=== PATIENT | female | born 1965 | race African-American/Black ===

== ENCOUNTER 2016-10-27 08:04 | Emergency (ER) | payer OTHER ==
[2016-10-27 08:23] VITALS: BP 138/97; PULSE 75; TEMP 98.7; BMI 25.0
--- NOTE | 2016-10-27 08:24 | PDOC ---
History of Present Illness - General Chief Complaint: Diarrhea Stated Complaint: DIARRHEA Time Seen by Provider: 10/27/16 08:07 History Source: Patient Exam Limitations: No Limitations - History of Present Illness Initial Comments: 10/27/16 08:21 50 yo F with h/o DM here with c/o diarrhea x 6 days. states having 3 - 4 bm / day. initially were watery, now more formed. does get lower abd crampig with eating. no f/c still tolerating PO. no recent travel or abx. no sick contacts. thought maybe was food poisoning from some canned milk she had 6 days prior. no h/o similar gi illness. Past History - Past Medical History Allergies/Adverse Reactions: Allergies Allergy/AdvReac Type Severity Reaction Status Date / Time No Known Allergies Allergy Verified 10/27/16 08:08 Home Medications: Ambulatory Orders Metformin HCl 500 mg PO BID 10/27/16 Diabetes: Yes - Psycho/Social/Smoking Cessation Hx Anxiety: No Suicidal Ideation: No Smoking History: Never smoked Have you smoked in the past 12 months: No Information on smoking cessation initiated: No Hx Alcohol Use: No Drug/Substance Use Hx: No Substance Use Type: None Review of Systems - Review of Systems Constitutional: No: Chills, Diaphoresis, Fever Respiratory: No: Orthopnea, Shortness of Breath Cardiac (ROS): No: Chest Pain, Edema ABD/GI: Yes: Diarrhea. No: Nausea, Vomiting : No: Burning, Dysuria All Other Systems: Reviewed and Negative *Physical Exam - Vital Signs Last Vital Signs Temp Pulse Resp BP Pulse Ox 98.7 F 75 20 138/97 97 10/27/16 08:04 10/27/16 08:04 10/27/16 08:04 10/27/16 08:04 10/27/16 08:04 - Physical Exam General Appearance: Yes: Nourished, Appropriately Dressed HEENT: positive: Normal ENT Inspection Neck: positive: Trachea midline Respiratory/Chest: positive: Lungs Clear, Normal Breath Sounds. negative: Respiratory Distress Cardiovascular: positive: Regular Rhythm, Regular Rate, S1, S2 Gastrointestinal/Abdominal: positive: Normal Bowel Sounds, Flat, Soft. negative : Tender Extremity: positive: Normal Capillary Refill Integumentary: positive: Normal Color, Dry, Warm Neurologic: positive: Fully Oriented, Alert, Normal Mood/Affect ED Treatment Course - LABORATORY CBC & Chemistry Diagram: 10/27/16 08:30 10/27/16 08:30 Medical Decision Making - Medical Decision Making 10/27/16 08:23 50 yo F with h/o DM on metformin here wtih 6 days mild abd cramping and loose stool. non/v no f/c nontendern exam. differential IBS, viral GE, colitis, dehydration electrolyte abnormality. plan labs, po hydration reassess. 10/27/16 09:33 pt labs unremarkable. tolerating PO nontendern exam. given GI* referral copies all blood work and req outpt followup. *DC/Admit/Observation/Transfer Diagnosis at time of Disposition: Colitis - Discharge Dispostion Disposition: HOME Condition at time of disposition: Improved Admit: No - Referrals Referrals: Adiel Mata MD [Staff Physician] - - Patient Instructions Printed Discharge Instructions: DI for Colitis, Viral Gastroenteritis Additional Instructions: you should follow up [facility] DR Mata, fitness studies teacher, call to schedule see referral information. your labs were all normal today ( see attached ) you should schedule follow up appointment with your regular doctor. return for vomiting, worsening pain, fever or any concerns. eat bland food, drink plenty of liquids to avoid dehydration. return for any problems or concerns.
[2016-10-27 08:47] LABS: BASOPHIL 1.2 % (0-2.0); EOSINOPHIL 0.8 % (0-4.5); MCH 30.5 pg (25.7-33.7); MEAN CELL VOLUME 89.6 fl (80-96); MEAN PLT VOLUME 8.8 fl (7.5-11.1); NEUTROPHILS 51.2 % (42.8-82.8); PLATELET COUNT 157 K/MM3 (134-434); RDW 12.2 % (11.6-15.6); WHITE BLOOD COUNT 5.1 K/mm3 (4.0-10.8)
[2016-10-27 08:54] LABS: ALBUMIN 3.8 g/dl (3.5-5.0); ALK PHOS 114 U/L (32-92); ANION GAP 7 (8-16); BILIRUBIN,TOTAL 0.4 mg/dl (0.2-1.0); CALCIUM 9.5 mg/dl (8.4-10.2); CO2 26 mmol/L (22-28); CREATININE 0.6 mg/dl (0.6-1.3); GLUCOSE,RANDOM 276 mg/dl (74-106); SGOT/AST 18 U/L (10-42); SGPT/ALT 23 U/L (10-40); TOT PROT 6.2 g/dl (6.4-8.3)
== END 2016-10-27 09:35 | disposition home or self-care (01) ==
LOC: FER 08:04
DX: K52.9 Noninfective gastroenteritis and colitis, unspecified (principal); E11.9 Type 2 diabetes mellitus without complications
CPT/HCPCS: 36415; 80053; 83690; 85025; 99282-25

== ENCOUNTER 2017-03-17 21:08 | Emergency (ER) | payer OTHER ==
[2017-03-17 21:14] VITALS: BP 140/87; PULSE 79; TEMP 98.4; BMI 25.0
[2017-03-17] MEDS ORDERED: IBUPROFEN 600 MG TABLET (FP) PO ONE ×2 (21:32→21:33)
--- NOTE | 2017-03-17 21:32 | PDOC ---
History of Present Illness - General History Source: Patient Exam Limitations: No Limitations - History of Present Illness Initial Comments: 03/17/17 21:41 A portion of this note was documented by scribe services under my direction. I have reviewed the details of the note, within reason, and agree with the documentation. The case summary and management plan written by me. Assessment and plan: This is a 51-year-old female who slipped and fell in the grocery store. Patient went down landing on her right buttock cheek and right side. Patient is complaining of pain in her right arm right buttocks and right knee patient is able to ambulate with minimal discomfort. Patient has no bony tenderness on my exam. Patient did not hit her head did not pass out does not have any other complaints. Patient was given ibuprofen told to continue the ibuprofen and follow up with her doctor in 3-4 days if not better <Judy Chavez I - Last Filed: 03/17/17 21:41> - General History Source: Patient Exam Limitations: No Limitations - History of Present Illness Initial Comments: 03/17/17 21:43 The patient is a 51 year old female, with a significant past medical history of DM, who presents to the emergency department via walk in complaining of right hip and right elbow pain s/p fall prior to arrival. The patient reports she was walking in the grocery store when she slipped on water on the ground and fell on her right side. She denies head injury or loss of consciousness. The patient reports the right hip pain is made worse while walking. She denies head, neck or back pain. She denies numbness, tingling or loss of sensation. She denies recent fevers, chills, headache or dizziness. She denies recent nausea, vomit, diarrhea or constipation. She denies recent chest pain or shortness of breath. PAST MEDICAL HISTORY: no significant history PAST SURGICAL HISTORY: no significant history FAMILY HISTORY: no pertinent history SOCIAL HISTORY: Pt lives with family and is employed. MEDICATIONS: reviewed ALLERGIES: As per nursing notes General: No fevers or chills, no weakness, no weight loss HEENT: No change in vision. No sore throat,. No ear pain CardioVascular: No chest pain or shortness of breath Respiratory:No cough, or wheezing. Gastrointestinal: no nausea, vomiting, diarrhea or constipation, No rectal bleeding Genitourinary: No dysuria, hematuria, or frequency Musculoskeletal: +Right hip pain. +Right elbow pain. Neurologic: No headache, vertigo, dizziness or loss of consciousness Psychiatric: nor depression Skin: No rashes or easy bruising Endocrine: no increased thirst or abnormal weight change Allergic: no skin or latex allergy All other systems reviewed and normal GENERAL: The patient is awake, alert, and fully oriented. HEAD: Normal with no signs of trauma. EYES: Pupils equal, round and reactive to light, extraocular movements intact, sclera anicteric, conjunctiva clear. EXTREMITIES: +Contusion and tenderness posterior right elbow. No bony tenderness. Full ROM with minimal discomfort. Neurovascular intact. +Contusion of the lower right buttocks laterally. Full ROM of the hip. No tenderness of the hip or upper leg. Patient is able to ambulate and bear weight with minimal discomfort. +Right knee contusion on the lateral aspect of the knee. No bony tenderness to patella, distal femur or proximal lower leg. Neurovascular of leg intact. NEUROLOGICAL: Normal speech, normal gait. PSYCH: Normal mood, normal affect. SKIN: Warm, Dry, normal turgor, no rashes or lesions noted. <Akhil Kenny - Last Filed: 03/17/17 21:45> - General Chief Complaint: Pain Stated Complaint: S/P FALL PAIN TO R HIP/ELBOW Time Seen by Provider: 03/17/17 21:24 Past History - Past Medical History COPD: No Diabetes: Yes - Suicide/Smoking/Psychosocial Hx Smoking History: Never smoked Have you smoked in the past 12 months: No Number of Cigarettes Smoked Daily: 0 Information on smoking cessation initiated: No Hx Alcohol Use: No Drug/Substance Use Hx: No Substance Use Type: None <Judy Chavez I - Last Filed: 03/17/17 21:41> <Akhil Kenny - Last Filed: 03/17/17 21:45> - Past Medical History Allergies/Adverse Reactions: Allergies Allergy/AdvReac Type Severity Reaction Status Date / Time No Known Allergies Allergy Verified 10/27/16 08:08 Home Medications: Ambulatory Orders Metformin HCl 500 mg PO BID 10/27/16 *Physical Exam - Vital Signs Last Vital Signs Temp Pulse Resp BP Pulse Ox 98.4 F 79 14 140/87 100 03/17/17 21:10 03/17/17 21:10 03/17/17 21:10 03/17/17 21:10 03/17/17 21:10 <Judy Chavez I - Last Filed: 03/17/17 21:41> - Vital Signs Last Vital Signs Temp Pulse Resp BP Pulse Ox 98.4 F 79 14 140/87 100 03/17/17 21:10 03/17/17 21:10 03/17/17 21:10 03/17/17 21:10 03/17/17 21:10 <Akhil Kenny - Last Filed: 03/17/17 21:45> ED Treatment Course - Medications Given in the ED: ED Medications Discontinued Medications Generic Name Dose Route Start Last Admin Trade Name Francis PRN Reason Stop Dose Admin Ibuprofen 600 mg 03/17/17 21:32 03/17/17 21:37 Motrin - PO 03/17/17 21:33 600 mg ONCE ONE Administration <Akhil Kenny - Last Filed: 03/17/17 21:45> *DC/Admit/Observation/Transfer - Discharge Dispostion Admit: No <Judy Chavez I - Last Filed: 03/17/17 21:41> - Attestations Scribe Attestion: 03/17/17 21:45 Documentation prepared by Akhil Kenny, acting as medical office supervisor for Judy Chavez MD. <Akhil Kenny - Last Filed: 03/17/17 21:45> Diagnosis at time of Disposition: Contusion, buttock Qualifiers: Encounter type: initial encounter Qualified Code(s): S30.0XXA - Contusion of lower back and pelvis, initial encounter Contusion of right knee Qualifiers: Encounter type: initial encounter Qualified Code(s): S80.01XA - Contusion of right knee, initial encounter Contusion of right elbow Qualifiers: Encounter type: initial encounter Qualified Code(s): S50.01XA - Contusion of right elbow, initial encounter - Discharge Dispostion Disposition: HOME Condition at time of disposition: Good - Patient Instructions Additional Instructions: Take ibuprofen 3 tablets 3 times a day with food don't take on an empty stomach do this for at least 4-5 days this is for pain and inflammation. Return to the emergency department immediately with ANY new, persistent or worsening symptoms. Continue any medications as previously prescribed by your physician. You should follow up with your primary doctor as soon as possible regarding today's emergency department visit. . Please make sure your doctor reviews the results of your emergency evaluation. Thank you for coming to the Emergency Department today for your care. It was a pleasure to see you today. Please note that your evaluation is INCOMPLETE until you follow-up with your doctor.
== END 2017-03-17 21:46 | disposition home or self-care (01) ==
LOC: FER 21:08
DX: S30.0XXA Contusion of lower back and pelvis, initial encounter (principal); S80.01XA Contusion of right knee, initial encounter; S50.01XA Contusion of right elbow, initial encounter; W18.39XA Other fall on same level, initial encounter; Y93.89 Activity, other specified; Y92.512 Supermarket, store or market as the place of occurrence of the external cause; E11.9 Type 2 diabetes mellitus without complications
CPT/HCPCS: 99282-25

== ENCOUNTER 2019-09-19 19:31 | Emergency (ER) | payer OTHER ==
[2019-09-19 19:45] VITALS: BP 141/96; PULSE 76; TEMP 98.6; BMI 26.9
--- NOTE | 2019-09-19 20:37 | PDOC ---
Documentation entered by Paloma Lea SCRIBE, acting as scribe for Judy Chavez MD. Judy Chavez MD: This documentation has been prepared by the anantibVenu garcia Lincy, SCRIBE, under my direction and personally reviewed by me in its entirety. I confirm that the documentation accurately reflects all work, treatment, procedures, and medical decision making performed by me. History of Present Illness - General Chief Complaint: Pain Stated Complaint: LEFT HIP AND SIDE PAIN S/P FALL ON WATER AT WORK Time Seen by Provider: 09/19/19 19:39 History Source: Patient Exam Limitations: No Limitations - History of Present Illness Initial Comments: 09/19/19 20:17 The patient is a 53-year-old female who presents to the emergency department s/p a fall at work around 3:00 pm today. The patient reports she didnt see the water on the floor next to the ventilator, she slipped on the water and fell onto her left side. Denies head injury or LOC. The patient reports the left hip didnt hurt following the incident, however, it has now worsened. The patient reports an intermittent, sharp, shooting pain to the left hip with ambulation. The patient reports taking 400mg of ibuprofen for the pain. PAST MEDICAL HISTORY: DM PAST SURGICAL HISTORY: no significant history FAMILY HISTORY: no pertinent history SOCIAL HISTORY: Pt lives with family and is employed. MEDICATIONS: reviewed ALLERGIES: As per nursing notes PCP: Dr. Mclean or Dr. Singh. Review of system: General: No fevers or chills, no weakness, no weight loss HEENT: No change in vision. No sore throat. No ear pain CardioVascular: No chest pain or shortness of breath Respiratory:No cough, or wheezing. Gastrointestinal: no nausea, vomiting, diarrhea or constipation, No rectal bleeding Genitourinary: No dysuria, hematuria, or frequency Musculoskeletal: +left hip pain. No other joint or muscle pain or swelling Neurologic: Denies head injury. No headache, vertigo, dizziness or loss of consciousness Psychiatric: nor depression Skin: No rashes or easy bruising Endocrine: no increased thirst or abnormal weight change Allergic: no skin or latex allergy All other systems reviewed and normal Physical exam: GENERAL: The patient is awake, alert, and fully oriented, in no acute distress. HEAD: Normal with no signs of trauma. EYES: Pupils equal, round and reactive to light, extraocular movements intact, sclera anicteric, conjunctiva clear. MSK: +No bony tenderness of the left hip. +soft tissue tenderness. EXTREMITIES: Normal range of motion, no edema. NEUROLOGICAL: Normal speech, normal gait. PSYCH: Normal mood, normal affect. SKIN: Warm, Dry, normal turgor, no rashes or lesions noted. 09/19/19 20:37 Assessment and plan: This is a 53-year-old female who comes in complaining of fell at work and has left hip pain. Patient had x-rays done that were negative for any acute pathology. Patient given Motrin. Patient able to ambulate with minimal discomfort or difficulty. Patient discharged and will follow-up with her primary care doctor Past History - Medical History Allergies/Adverse Reactions: Allergies Allergy/AdvReac Type Severity Reaction Status Date / Time No Known Allergies Allergy Verified 09/19/19 19:33 Home Medications: Ambulatory Orders NK [No Known Home Medication] 09/19/19 COPD: No Diabetes: Yes - Psycho-Social/Smoking History Smoking History: Never smoked Have you smoked in the past 12 months: No Number of Cigarettes Smoked Daily: 0 Discharge - Discharge Information Problems reviewed: Yes Clinical Impression/Diagnosis: Left hip pain, Fall Condition: Stable Disposition: HOME - Admission No - Follow up/Referral Referrals: Nile Roche MD [Primary Care Provider] - - Patient Discharge Instructions Additional Instructions: Tylenol or Motrin as needed for pain return to the emergency department immediately with ANY new, persistent or worsening symptoms. Continue any medications as previously prescribed by your physician. You should follow up with your primary doctor as soon as possible regarding today's emergency department visit. . Please make sure your doctor reviews the results of your emergency evaluation. Thank you for coming to the Emergency Department today for your care. It was a pleasure to see you today. Please note that your evaluation is INCOMPLETE until you follow-up with your doctor. . - Post Discharge Activity
== END 2019-09-19 20:42 | disposition home or self-care (01) ==
LOC: FER 19:31 → SUPCPDRO 19:31 → FER 20:42
DX: M25.552 Pain in left hip (principal)
CPT/HCPCS: 73523-TC-FY; 99283-25

== ENCOUNTER 2019-12-06 23:29 | Emergency (ER) | payer OTHER ==
[2019-12-06 23:43] VITALS: BMI 24.2
[2019-12-06] MEDS ORDERED: SODIUM CHLORIDE 1,000 ML IV SCH (23:45)
[2019-12-06] MEDS ORDERED: ONDANSETRON 4 MG/2 ML VIAL IVPUSH ONE (23:50)
--- NOTE | 2019-12-06 23:52 | PDOC ---
Attending Attestation - Resident Resident Name: Aaron Shea - ED Attending Attestation I have performed the following: I have examined & evaluated the patient, The case was reviewed & discussed with the resident, I agree w/resident's findings & plan - HPI HPI: 12/07/19 03:13 see resident hpi - Physicial Exam PE: 12/07/19 03:13 see resident exam - Medical Decision Making 12/07/19 03:13 54-year-old female with gradual onset of frontal headache with nausea since yesterday CT scan of the brain shows no significant acute findings Patient did have an elevated blood sugar of greater than 300 despite being on Metformin Plan for IV fluid normal saline x2 L, Reglan 10 mg and Zofran 4 mg as well as Tylenol 1 g IV On reevaluation patient had minimal improvement, will add Toradol and Benadryl and plan for discharge after reevaluation if improved Of note there is no associated fever, leukocytosis, thunderclap onset or description of the worst headache of her life, no meningeal signs on exam Discharge - Discharge Information Problems reviewed: Yes Clinical Impression/Diagnosis: Frontal headache - Follow up/Referral - Patient Discharge Instructions - Post Discharge Activity
[2019-12-06] MEDS ORDERED: ACETAMINOPHEN 1000 MG/100 ML VIAL (NON FORMULARY) IVPB ONE (23:57)
--- OUTSIDE RECORDS SUMMARY | 2019-12-07 00:10 | XMS ---
:1965 Author Organization [facility] Care Team Providers Name Role Phone CAITIE PAUL Unavailable Unavailable Re-disclosure Warning The records that you are about to access may contain information from federally- assisted alcohol or drug abuse programs. If such information is present, then the following federally mandated warning applies: This information has been disclosed to you from records protected by federal confidentiality rules (42 CFR part 2). The federal rules prohibit you from making any further disclosure of this information unless further disclosure is expressly permitted by the written consent of the person to whom it pertains or as otherwise permitted by 42 CFR part 2. A general authorization for the release of medical or other information is NOT sufficient for this purpose. The Federal rules restrict any use of the information to criminally investigate or prosecute any alcohol or drug abuse patient.The records that you are about to access may contain highly sensitive health information, the redisclosure of which is protected by Article 27-F of the [facility] Public Health law. If you continue you may haveaccess to information: Regarding HIV / AIDS; Provided by facilities licensed or operated by the [facility] Office of Mental Health; or Provided by the [facility] Office for People With Developmental Disabilities. If such information is present, then the following [facility] mandated warning applies: This information has been disclosed to you from confidential records which are protected by state law. State law prohibits you from making any further disclosure of this information without the specific written consent of the person to whom it pertains, or as otherwise permitted by law. Any unauthorized further disclosure in violation of state law may result in a fine or retirement sentence or both. A general authorization for the release of medical or other information is NOT sufficient authorization for further disclosure. Encounters Encounter Providers Location Date Indications Data Source(s ) Outpatient Attender: BEVERLY 06/20/2019 Z03.818 [facility] MARTÍNEZdmitter: 11:45:00 AM Health C are CAITIE PAUL [employer] Z03.818 Insurance Providers Payer name Policy type Policy ID Covered Covered republican's Policy P nate / Coverage republican ID relationship to [employer] ormation type [employer] LOCAL [id number] - [id number] [facility] [id number] SP [id number] Problems, Conditions, and Diagnoses Code Display Name Description Problem Type Effective Data Sour ce(s) Dates Z03.818 Encounter for ENCNTR FOR OBS Diagnosis 06/20/2019 [facility] observation for FOR SUSP EXPSR TO 11:45:00 AM C Kleer suspected OTH BIOLG AGENTS [employer] poration exposure to other RULED OUT biological agents ruled out Results ID Date Data Source [id number] 09/19/2019 12:00:00 AM EDT [facility] Name Value Range Interpretation Code Description Data Sophie rce(s) Supporting Document(s ) 2018-nCoV [facility] RNA XXX MARCELLUS+probe- Imp This lab was ordered by [facility] and reported by [employer] ID Date Data Source [id number] 08/14/2019 12:00:00 AM EDT [facility] Name Value Range Interpretation Code Description Data Sophie rce(s) Supporting Document(s ) 2018-nCoV [facility] RNA XXX MARCELLUS+probe- Imp This lab was ordered by [facility] and reported by [employer] ID Date Data Source [id number] 07/20/2019 12:00:00 AM EDT [facility] Name Value Range Interpretation Code Description Data Sophie rce(s) Supporting Document(s ) 2018-nCoV [facility] RNA XXX MARCELLUS+probe- Imp This lab was ordered by [facility] and reported by [employer] ID Date Data Source [id number] 06/20/2019 12:00:00 AM [facility] Name Value Range Interpretation Code Description Data Sophie rce(s) Supporting Document(s ) 2018-nCoV [facility] RNA XXX MARCELLUS+probe- Imp This lab was ordered by [facility] and reported by [employer] Procedure
[2019-12-07] MEDS ORDERED: ACETAMINOPHEN INJECTION 100 ML IVPB ONE (00:16)
[2019-12-07 00:35] LABS: BASO % 0.3 % (0-2.0); EOS % 0.1 % (0-4.5); HEMATOCRIT 41.4 % (32.4-45.2); HEMOGLOBIN 14.4 GM/dL (10.7-15.3); LYMPH % 14.8 % (8-40); MCH 31.8 pg (25.7-33.7); MCHC 34.7 g/dl (32.0-36.0); MEAN CELL VOLUME 91.6 fl (80-96); MEAN PLT VOLUME 10.7 fl (7.5-11.1); NEUT % 82.8 % (42.8-82.8); PLATELET COUNT 143 K/MM3 (134-434); RBC 4.53 M/mm3 (3.60-5.2); RDW 13.2 % (11.6-15.6); WHITE BLOOD COUNT 6.4 K/mm3 (4.0-10.0)
--- NOTE | 2019-12-07 00:40 | PDOC ---
History of Present Illness - General Chief Complaint: Nausea/Vomiting Stated Complaint: NAUSEA Time Seen by Provider: 12/06/19 23:52 History Source: Patient Exam Limitations: No Limitations - History of Present Illness Initial Comments: 12/07/19 00:40 54F with PMH of DM presents to the ED with DEL RIO + n/v yesterday. She does not have a history of headaches or migraines. She started having a frontal headache yesterday morning at work, and in the afternoon developed nausea/vomiting nonbilious, nonbloody. EMS was called. She denies lightheadedness/vertigo, numbness, weakness, cp, sob, abdominal pain, diarrhea, or constipation. Meds: In chart Allergies: NKDA ROS: HEENT: No change in vision. CARDIOVASCULAR: No chest pain or shortness of breath RESPIRATORY: No cough, wheezing, or hemoptysis. GASTROINTESTINAL: +nausea, vomiting; no diarrhea or constipation. GENITOURINARY: No dysuria, frequency, or change in urination. NEUROLOGIC: +headache; no vertigo, loss of consciousness, or change in strength/sensation. PE: GENERAL: AOx3; no apparent distress HEAD: NC/AT EYES: PERRLA, EOMI, sclera anicteric, conjunctiva clear CARDIO: RRR, normal S1/S2, no murmurs, rubs, or gallops. LUNGS: No distress, speaks full sentences, CTA bilaterally ABDOMEN: Soft, nontender. No guarding, no rebound. No masses NEUROLOGICAL: CNII-XII intact. Normal speech. No focal sensorimotor deficits. Cerebellar testing intact. Assessment and Plan 1. r/o intracranial pathology 2. gastroenteritis 3. tension DEL RIO Aaron Shea, PGY1 Emergency Medicine Past History - Medical History Allergies/Adverse Reactions: Allergies Allergy/AdvReac Type Severity Reaction Status Date / Time No Known Allergies Allergy Verified 12/06/19 23:42 Home Medications: Ambulatory Orders NK [No Known Home Medication] 09/19/19 COPD: No Diabetes: Yes - Reproductive History Is Patient Now?: No - Psycho-Social/Smoking History Smoking History: Never smoked Have you smoked in the past 12 months: No Number of Cigarettes Smoked Daily: 0 Information on smoking cessation initiated: No - Substance Abuse Hx (Audit-C & DAST Scrn) How often the patient has a drink containing alcohol: Never Score: In Men: 4 or > Positive; In Women: 3 or > Positive: 0 Screen Result (Pos requires Nsg. Audit-10AR): Negative In the last yr the pt used illegal drug/Rx for NonMed reason: No Score: Yes response is considered Positive: 0 Screen Result (Positive result requires Nsg. DAST-10): Negative *Physical Exam - Vital Signs Last Vital Signs Temp Pulse Resp BP Pulse Ox 98.9 F 87 20 143/81 100 12/06/19 23:41 12/06/19 23:41 12/06/19 23:41 12/06/19 23:41 12/06/19 23:41 ED Treatment Course - LABORATORY CBC & Chemistry Diagram: 12/07/19 00:07 12/07/19 00:07 - ADDITIONAL ORDERS Additional order review: 12/07/19 00:07 RBC 4.53 MCV 91.6 MCHC 34.7 RDW 13.2 MPV 10.7 Neutrophils % 82.8 Lymphocytes % 14.8 Monocytes % 2.0 L Eosinophils % 0.1 Basophils % 0.3 - Medications Given in the ED: ED Medications Discontinued Medications Generic Name Dose Route Start Last Admin Trade Name Marcellq PRN Reason Stop Dose Admin Acetaminophen 1,000 mg 12/06/19 23:57 12/07/19 00:21 Ofirmev Injection - IVPB 12/06/19 23:58 1,000 mg ONCE ONE Administration Ondansetron HCl 4 mg 12/06/19 23:50 12/07/19 00:12 Zofran Injection IVPUSH 12/06/19 23:51 Not Given ONCE ONE Medical Decision Making - Medical Decision Making 12/07/19 01:36 54F p/w DEL RIO and n/v. PE was unimpressive. -> DDx: r/o intracranial pathology, gastritis -> CBC, CMP, trop neg 12/07/19 01:45 Pt reported resolution of nausea, but continued DEL RIO -> given IV Reglan 12/07/19 02:[address] negative. On reassessment, nausea remains resolved. DEL RIO persists -> will give benadryl 12.5mg IV benadryl and 30mg IV toradol 12/07/19 04:44 Reports continued headache -> will give 2nd liter of NS 12/07/19 05:26 On reassessment, pt reports improvement to headache. She's stable for discharge. Discharge - Discharge Information Problems reviewed: Yes Clinical Impression/Diagnosis: Frontal headache Condition: Stable Disposition: HOME - Admission No - Follow up/Referral - Patient Discharge Instructions Patient Printed Discharge Instructions: DI for Headache Additional Instructions: You were seen in the emergency department for headache, nausea, and vomiting. You received Tylenol, Reglan, IV fluids. Your labs and CT scan were normal. Please follow up with your primary care physician regarding your visit to the emergency department. If you experience profound headache with lightheadedness or dizziness, or vomiting without the ability to hold down fluids, please return to the emergency department or call 911. - Post Discharge Activity
[2019-12-07 01:11] LABS: ALBUMIN 4.2 g/dl (3.4-5.0); ALK PHOS 144 U/L (45-117); ANION GAP 8 MMOL/L (8-16); BILIRUBIN,TOTAL 0.4 mg/dL (0.2-1); BLOOD UREA NITROGEN 16.8 mg/dL (7-18); CALCIUM 10.1 mg/dL (8.5-10.1); CHLORIDE 100 mmol/L (98-107); CO2 29 mmol/L (21-32); CREATININE 0.7 mg/dL (0.55-1.3); GLUCOSE,RANDOM 310 mg/dL (74-106); POTASSIUM 3.9 mmol/L (3.5-5.1); SGOT/AST 18 U/L (15-37); SGPT/ALT 33 U/L (13-61); SODIUM 137 mmol/L (136-145); TOT PROT 7.9 g/dl (6.4-8.2)
[2019-12-07] MEDS ORDERED: METOCLOPRAMIDE HCL INJECTION 10 MG/2 ML VIAL IVPUSH ONE (01:35)
[2019-12-07] MEDS ORDERED: METOCLOPRAMIDE HCL INJECTION 10 MG/2 ML VIAL ONE (01:50)
[2019-12-07] MEDS ORDERED: KETOROLAC TROMETHAMINE 15 MG/ML VIAL IVPUSH ONE (02:50)
[2019-12-07] MEDS ORDERED: KETOROLAC TROMETHAMINE 30 MG/1 ML VIAL IVPUSH ONE (02:53)
[2019-12-07] MEDS ORDERED: KETOROLAC TROMETHAMINE 30 MG/1 ML VIAL ONE (02:57)
[2019-12-07] MEDS ORDERED: SODIUM CHLORIDE 1,000 ML IV SCH (03:00)
[2019-12-07 05:41] VITALS: BP 127/70; PULSE 81; TEMP 97.8
--- NOTE | 2019-12-07 13:36 | EKG ---
Test Reason : Blood Pressure : / mmHG Vent. Rate : 076 BPM Atrial Rate : 076 BPM P-R Int : 160 ms QRS Dur : 074 ms QT Int : 422 ms P-R-T Axes : 063 -01 005 degrees QTc Int : 474 ms NORMAL SINUS RHYTHM POSSIBLE LEFT ATRIAL ENLARGEMENT BORDERLINE ECG NO PREVIOUS ECGS AVAILABLE Confirmed by CARLYLE MARS, JOSE ([id number]) on 12/07/2019 1:36:09 PM Referred By: Confirmed By:JOSE TADEO MD
== END 2019-12-07 05:29 | disposition home or self-care (01) ==
LOC: JER 23:29
PROC: 3E033NZ Introduction of Analgesics, Hypnotics, Sedatives into Peripheral Vein, Percutaneous Approach (ICD-10-PCS; principal; 2019-12-06)
PROC: 3E033GC Introduction of Other Therapeutic Substance into Peripheral Vein, Percutaneous Approach (ICD-10-PCS; 2019-12-06)
DX: R51.9 Headache, unspecified (principal)
CPT/HCPCS: 36415; 70450-TC; 71045-TC-FY; 80053; 84484; 84703; 85025; 93005; 93010; 99285-25; J0131

== ENCOUNTER 2020-09-17 10:38 | Emergency (ER) | payer OTHER ==
[2020-09-17 10:54] VITALS: BMI 25.0
[2020-09-17] MEDS ORDERED: ASPIRIN 81 MG CHEWABLE TABLETS PO ONE (11:30)
[2020-09-17] MEDS ORDERED: ASPIRIN 81 MG CHEWABLE TABLETS ONE (11:57)
[2020-09-17 11:59] LABS: BASO % 1.7 % (0-2.0); EOS % 0.8 % (0-4.5); HEMATOCRIT 37.2 % (32.4-45.2); HEMOGLOBIN 12.4 GM/dl (10.7-15.3); LYMPH % 40.7 % (8-40); MCH 30.3 pg (25.7-33.7); MCHC 33.3 g/dl (32.0-36.0); MEAN CELL VOLUME 90.9 fl (80-96); MEAN PLT VOLUME 9.4 fl (7.5-11.1); NEUT % 48.8 % (42.8-82.8); PLATELET COUNT 132 10^3/uL (134-434); RDW 12.5 % (11.6-15.6); WHITE BLOOD COUNT 3.8 K/mm3 (4.0-10.8)
[2020-09-17 12:00] LABS: ACTIVATED PTT 27.4 SECONDS (25.2-36.5)
[2020-09-17 12:04] LABS: INR 1.05 (0.82-1.09); PROTHROMBIN TIME (PATIENT) 11.7 SEC (10.2-13.0)
[2020-09-17 12:06] LABS: ALBUMIN 3.7 g/dl (3.4-5.0); ALK PHOS 116 U/L (45-117); ANION GAP 6 MMOL/L (8-16); BILIRUBIN,TOTAL 0.4 mg/dl (0.2-1); CHLORIDE 104 mmol/L (98-107); CO2 27 mmol/L (21-32); CREATININE 0.5 mg/dl (0.55-1.3); GLUCOSE,RANDOM 288 mg/dl (74-106); MAGNESIUM 1.9 mg/dL (1.8-2.4); SGOT/AST 21 U/L (15-37); SGPT/ALT 32 U/L (13-61); SODIUM 137 mmol/L (136-145); TOT PROT 6.3 g/dl (6.4-8.2)
[2020-09-17 16:04] VITALS: BP 147/97; PULSE 67; TEMP 98.6
== END 2020-09-17 16:58 | disposition home or self-care (01) ==
LOC: FER 10:38
DX: R07.89 Other chest pain (principal)
CPT/HCPCS: 36415; 71045-TC-FY; 80053; 82550; 82553; 83735; 84484; 85025; 85610; 85730; 93005; 99285-25; C9803; U0003; U0005

== ENCOUNTER 2023-01-27 19:50 | Emergency (ER) | payer OTHER ==
[2023-01-27 20:16] VITALS: BP 140/79; PULSE 85; RESP 20; TEMP 98.6; BMI 22.7
== END 2023-01-27 21:36 | disposition home or self-care (01) ==
LOC: FER 19:50
DX: R07.89 Other chest pain (principal); S29.011A Strain of muscle and tendon of front wall of thorax, initial encounter; X50.0XXA Overexertion from strenuous movement or load, initial encounter; Y99.0 Civilian activity done for income or pay
CPT/HCPCS: 93005; 99283-25